=== PATIENT | female | born 1995 | race Caucasian/White ===

== ENCOUNTER 2017-11-04 18:30 | Emergency (ER) | payer OTHER ==
--- NOTE | 2017-11-04 18:37 | PDOC ---
Rapid Medical Evaluation Medical Evaluation: Allergies Allergy/AdvReac Type Severity Reaction Status Date / Time No Known Allergies Allergy Verified 11/25/15 23:58 11/04/17 18:34 c/o left arm feeling pain, not today, pt also had left side "body pain last week " pt states she felt nausea nd light headed as well yesterday not today. no PMHX, no allergies or medications LMP 3 weeks ago
[2017-11-04 18:42] VITALS: BP 153/83; TEMP 99.1; BMI 28.3
[2017-11-04] MEDS ORDERED: ACETAMINOPHEN 1000 MG/100 ML VIAL (NON FORMULARY) IVPB ONE (20:03)
[2017-11-04] MEDS ORDERED: SODIUM CHLORIDE 0.9% 1000 ML INFUS.BAG IV ONE (20:03)
[2017-11-04] MEDS ORDERED: ACETAMINOPHEN INJECTION 100 ML IVPB ONE (20:23)
[2017-11-04 20:51] LABS: ALBUMIN 4.1 g/dl (3.4-5.0); ANION GAP 9 (8-16); BLOOD UREA NITROGEN 13 mg/dL (7-18); CALCIUM 8.1 mg/dL (8.5-10.1); CHLORIDE 106 mmol/L (98-107); CO2 24 mmol/L (21-32); GLUCOSE,RANDOM 81 mg/dL (74-106); POTASSIUM 3.7 mmol/L (3.5-5.1); SGPT/ALT 32 U/L (12-78); SODIUM 139 mmol/L (136-145)
[2017-11-04 20:54] LABS: ALK PHOS 80 U/L (45-117); BILIRUBIN,TOTAL 0.4 mg/dL (0.2-1.0); CREATININE 0.6 mg/dL (0.55-1.02); SGOT/AST 35 U/L (15-37); TOT PROT 7.3 g/dl (6.4-8.2)
--- NOTE | 2017-11-04 21:02 | PDOC ---
History of Present Illness - General History Source: Patient Exam Limitations: No Limitations - History of Present Illness Initial Comments: 11/04/17 21:03 The patient is a 22 year old female with no significant PMH who presents to the emergency department with 1 week of diffuse body aches and lightheadedness and 3 days of diarrhea. The patient reports initially feeling sore in her left arm which has radiated diffusely to her body. She particularly reports some associated midsternal chest aches and backaches. The patient denies any nasal congestion or cough. She denies outside travel or sick contacts. She denies chance of . The patient denies chest pain, shortness of breath, headache and dizziness. Denies fever, chills, nausea, vomit, diarrhea and constipation. Denies dysuria, frequency, urgency and hematuria. Allergies: NKA Past surgical history: None reported. Social history: No reported cigarette, alcohol, or drug use. PCP: Dr. Benavidez <Rcih Garcia - Last Filed: 11/04/17 21:03> <Andres Beckett - Last Filed: 11/04/17 22:05> - General Chief Complaint: Head/Neck problem Stated Complaint: PAIN Time Seen by Provider: 11/04/17 19:58 Past History <Rich Garcia - Last Filed: 11/04/17 21:03> - Past Medical History COPD: No - Suicide/Smoking/Psychosocial Hx Smoking History: Never smoked Have you smoked in the past 12 months: No Information on smoking cessation initiated: No Hx Alcohol Use: No Drug/Substance Use Hx: No Substance Use Type: None <Andres Beckett - Last Filed: 11/04/17 22:05> - Past Medical History Allergies/Adverse Reactions: Allergies Allergy/AdvReac Type Severity Reaction Status Date / Time No Known Allergies Allergy Verified 11/04/17 18:41 Home Medications: Ambulatory Orders NK [No Known Home Medication] 11/25/15 Review of Systems - Review of Systems Able to Perform ROS?: Yes Comments:: 11/04/17 21:03 A complete review of 10 out of 10 review of systems is taken and is negative apart from what is previously mentioned below and in the HPI. <Rich Garcia - Last Filed: 11/04/17 21:03> *Physical Exam - Vital Signs Last Vital Signs Temp Pulse Resp BP Pulse Ox 99.1 F 110 H 18 153/83 100 11/04/17 18:37 11/04/17 18:37 11/04/17 18:37 11/04/17 18:37 11/04/17 18:37 - Physical Exam Comments: 11/04/17 21:03 Vitals: Triage Vital signs reviewed General Appearance: no acute distress, well nourished well developed, Head: Atraumatic, normocephalic Eyes: Pupils equal reactive round, extraocular movement intact Ears: TM's normal bilaterally; Nose: Nares patent bilaterally;no nasal congestion Throat: Posterior oropharynx without erythema, mucous membranes moist, Chest Wall: Nontender Cardiac: Regular rate and rhythm, no murmurs, no rubs, no gallops, Lungs: Clear to auscultation bilateral, good air movement bilaterally, Abdomen: Soft, nondistended, normal bowel sounds, nontender to palpation Extremities: Full range of motion to all extremities, no cyanosis, clubbing, or edema Neuro: AOX3; Cranial Nerves 2-12 grossly intact, Strength intact to all extremities, Sensation intact to all extremities Psych: normal mood, normal affect <Rich Garcia - Last Filed: 11/04/17 21:03> - Vital Signs Last Vital Signs Temp Pulse Resp BP Pulse Ox 99.1 F 110 H 18 153/83 100 11/04/17 18:37 11/04/17 18:37 11/04/17 18:37 11/04/17 18:37 11/04/17 18:37 <Andres Beckett - Last Filed: 11/04/17 22:05> Heart Score/ECG Review - ECG Impressions Comment:: 11/04/17 22:[address] elevations or T-wave inversions <Andres Beckett - Last Filed: 11/04/17 22:05> ED Treatment Course - LABORATORY CBC & Chemistry Diagram: 11/04/17 20:05 - ADDITIONAL ORDERS Additional order review: Laboratory Results 11/04/17 11/04/17 11/04/17 20:05 20:05 20:05 Sodium 139 Potassium 3.7 Chloride 106 Carbon Dioxide 24 Anion Gap 9 BUN 13 Creatinine 0.6 Creat Clearance w eGFR > 60 Random Glucose 81 Calcium 8.1 L Total Bilirubin 0.4 AST 35 ALT 32 Alkaline Phosphatase 80 Troponin I Cancelled < 0.02 Total Protein 7.3 Albumin 4.1 Urine HCG, Qual Negative - Medications Given in the ED: ED Medications Discontinued Medications Generic Name Dose Route Start Last Admin Trade Name Freq PRN Reason Stop Dose Admin Acetaminophen 1,000 mg 11/04/17 20:03 11/04/17 20:28 Ofirmev Injection - IVPB 11/04/17 20:04 1,000 mg ONCE ONE Administration Sodium Chloride 1,000 ml 11/04/17 20:03 11/04/17 20:22 Normal Saline - IV 11/04/17 20:04 1,000 ml ONCE ONE Administration <Rich Garcia - Last Filed: 11/04/17 21:03> - LABORATORY CBC & Chemistry Diagram: 11/04/17 20:05 - ADDITIONAL ORDERS Additional order review: Laboratory Results 11/04/17 11/04/17 11/04/17 20:05 20:05 20:05 Sodium 139 Potassium 3.7 Chloride 106 Carbon Dioxide 24 Anion Gap 9 BUN 13 Creatinine 0.6 Creat Clearance w eGFR > 60 Random Glucose 81 Calcium 8.1 L Total Bilirubin 0.4 AST 35 ALT 32 Alkaline Phosphatase 80 Troponin I Cancelled < 0.02 Total Protein 7.3 Albumin 4.1 Urine HCG, Qual Negative - Medications Given in the ED: ED Medications Discontinued Medications Generic Name Dose Route Start Last Admin Trade Name Freq PRN Reason Stop Dose Admin Acetaminophen 1,000 mg 11/04/17 20:03 11/04/17 20:28 Ofirmev Injection - IVPB 11/04/17 20:04 1,000 mg ONCE ONE Administration Sodium Chloride 1,000 ml 11/04/17 20:03 11/04/17 20:22 Normal Saline - IV 11/04/17 20:04 1,000 ml ONCE ONE Administration <Andres Beckett - Last Filed: 11/04/17 22:05> Medical Decision Making - Medical Decision Making 11/04/17 21:03 Plan: Lab: BMP, CMP, Urine hCG, Troponin I Cardiology: EKG Medications: Ofirmev, Normal saline. <Rich Garcia - Last Filed: 11/04/17 21:03> - Medical Decision Making Well-appearing no apparent distress history and examination consistent with viral illness given body aches and diarrhea No headache no neck discomfort no rash Labs EKG within normal limits Findings, the need for follow-up, strict return instructions discussed with patient. <Andres Beckett - Last Filed: 11/04/17 22:05> *DC/Admit/Observation/Transfer - Attestations Scribe Attestion: 11/04/17 21:04 Documentation prepared by Rich Garcia, acting as durable medical equipment repairer for Andres Beckett MD. <Rich Garcia - Last Filed: 11/04/17 21:03> <Andres Beckett - Last Filed: 11/04/17 22:05> Diagnosis at time of Disposition: Viral illness - Referrals Referrals: Lexy Menendez MD [Primary Care Provider] - - Patient Instructions Printed Discharge Instructions: Diarrhea Additional Instructions: Drink plenty fluids. Take [id number] Tylenol and a probiotic as directed on package. Follow-up with your doctor in 2-3 days. Return to the emergency department for any severe worsening symptoms or for any concerns. - Post Discharge Activity Forms/Work/School Notes: Back to Work
[2017-11-04 22:09] VITALS: PULSE 78
--- NOTE | 2017-11-05 11:29 | EKG ---
Test Reason : Blood Pressure : / mmHG Vent. Rate : 096 BPM Atrial Rate : 096 BPM P-R Int : 136 ms QRS Dur : 084 ms QT Int : 330 ms P-R-T Axes : 046 037 009 degrees QTc Int : 416 ms NORMAL SINUS RHYTHM NORMAL ECG NO PREVIOUS ECGS AVAILABLE Confirmed by MD Madison Daniel ([id number]) on 11/05/2017 11:29:18 AM Referred By: Confirmed By:Hero Madison MD
== END 2017-11-04 22:13 | disposition home or self-care (01) ==
LOC: JER 18:30
PROC: 3E033NZ Introduction of Analgesics, Hypnotics, Sedatives into Peripheral Vein, Percutaneous Approach (ICD-10-PCS; principal; 2017-11-04)
DX: B34.9 Viral infection, unspecified (principal)
CPT/HCPCS: 36415; 80053; 84484; 84703; 93005; 93010; 96374; 99282-25

== ENCOUNTER 2018-01-15 14:59 | Emergency (ER) | payer OTHER ==
[2018-01-15 15:47] VITALS: BP 128/70; PULSE 74; TEMP 98.7; BMI 28.3
--- NOTE | 2018-01-15 15:47 | PDOC ---
Rapid Medical Evaluation Time Seen by Provider: 01/15/18 15:42 Medical Evaluation: Allergies Allergy/AdvReac Type Severity Reaction Status Date / Time No Known Allergies Allergy Verified 01/15/18 15:42 01/15/18 15:43 I have performed a brief in-person evaluation of this patient. The patient presents with a chief complaint of: rash to toes, worsening x 2 weeks, w/ ?gen weakness. Denies pmhx Pertinent physical exam findings:? tinea to toe webs w/ blisters, erythema and foul odor I have ordered the following:labs The patient will proceed to the ED for further evaluation. Discharge Disposition - Diagnosis Rash - Referrals - Patient Instructions - Post Discharge Activity
[2018-01-15 16:10] LABS: BASO % 0.3 % (0-2.0); EOS % 2.7 % (0-4.5); HEMATOCRIT 31.2 % (32.4-45.2); HEMOGLOBIN 9.9 GM/dL (10.7-15.3); LYMPH % 20.6 % (8-40); MCH 22.8 pg (25.7-33.7); MCHC 31.9 g/dl (32.0-36.0); MEAN CELL VOLUME 71.5 fl (80-96); MEAN PLT VOLUME 8.3 fl (7.5-11.1); MONO % 6.7 % (3.8-10.2); NEUT % 69.7 % (42.8-82.8); PLATELET COUNT 258 K/MM3 (134-434); RBC 4.36 M/mm3 (3.60-5.2); RDW 17.6 % (11.6-15.6); WHITE BLOOD COUNT 9.1 K/mm3 (4.0-10.0)
--- NOTE | 2018-01-15 16:56 | PDOC ---
History of Present Illness - General Chief Complaint: Wound Stated Complaint: FEET WOUNDS Time Seen by Provider: 01/15/18 15:42 - History of Present Illness Initial Comments: 01/15/18 16:51 Ms. Raphael is a 22 yo female w/ no significant pmh who presents complaining of a several day history of blisters and pain / parasthesias to her feet. She reports that last week she started playing soccer with new cleats and developed blistering. She continued to play and the blisters got larger and more painful. Several burst and she has started to have tingling as well. She presents for evaluation as they have continued to get worse. The patient denies chest pain, shortness of breath, headache and dizziness. Denies fever, chills, nausea, vomit, diarrhea and constipation. Denies dysuria, frequency, urgency and hematuria. Allergies: NKDA Past History - Past Medical History Allergies/Adverse Reactions: Allergies Allergy/AdvReac Type Severity Reaction Status Date / Time No Known Allergies Allergy Verified 01/15/18 15:42 Home Medications: Ambulatory Orders Clotrimazole 1 applic TP BID #1 bottle 01/15/18 COPD: No - Suicide/Smoking/Psychosocial Hx Smoking History: Never smoked Have you smoked in the past 12 months: No Hx Alcohol Use: No Drug/Substance Use Hx: No Substance Use Type: None Review of Systems - Review of Systems Comments:: 01/15/18 16:54 GENERAL/CONSTITUTIONAL: No fever or chills. No weakness. HEAD, EYES, EARS, NOSE AND THROAT: No change in vision. No ear pain or discharge. No sore throat. CARDIOVASCULAR: No chest pain or shortness of breath RESPIRATORY: No cough, wheezing, or hemoptysis. GASTROINTESTINAL: No nausea, vomiting, diarrhea or constipation. GENITOURINARY: No dysuria, frequency, or change in urination. MUSCULOSKELETAL: +Blisters/pain to several toes. No joint or muscle swelling or pain. No neck or back pain. SKIN: No rash NEUROLOGIC: No headache, vertigo, loss of consciousness, or change in strength/ sensation. ENDOCRINE: No increased thirst. No abnormal weight change HEMATOLOGIC/LYMPHATIC: No anemia, easy bleeding, or history of blood clots. ALLERGIC/IMMUNOLOGIC: No hives or skin allergy. *Physical Exam - Vital Signs Last Vital Signs Temp Pulse Resp BP Pulse Ox 98.7 F 74 19 128/70 100 01/15/18 15:43 01/15/18 15:43 01/15/18 15:43 01/15/18 15:43 01/15/18 15:43 - Physical Exam Comments: 01/15/18 16:55 GENERAL: Awake, alert, and fully oriented, in no acute distress HEAD: No signs of trauma, normocephalic, atraumatic EYES: PERRLA, EOMI, sclera anicteric, conjunctiva clear ENT: Auricles normal inspection, hearing grossly normal, nares patent, oropharynx clear without exudates. Moist mucosa NECK: Normal ROM, supple, no lymphadenopathy, JVD, or masses LUNGS: No distress, speaks full sentences, clear to auscultation bilaterally HEART: Regular rate and rhythm, normal S1 and S2, no murmurs, rubs or gallops, peripheral pulses normal and equal bilaterally. ABDOMEN: Soft, nontender, normoactive bowel sounds. No guarding, no rebound. No masses EXTREMITIES: +Bilateral dessication of skin of toes with significant blistering. Skin appears wet. NEUROLOGICAL: Cranial nerves II through XII grossly intact. Normal speech, normal gait, no focal sensorimotor deficits SKIN: As above, otherwise Warm, Dry, normal turgor, no rashes or lesions noted. ED Treatment Course - LABORATORY CBC & Chemistry Diagram: 01/15/18 16:03 01/15/18 16:03 - ADDITIONAL ORDERS Additional order review: 01/15/18 16:03 RBC 4.36 MCV 71.5 L MCHC 31.9 L RDW 17.6 H MPV 8.3 Neutrophils % 69.7 Lymphocytes % 20.6 Monocytes % 6.7 Eosinophils % 2.7 Basophils % 0.3 Medical Decision Making - Medical Decision Making 01/15/18 18:21 Ms. Raphael is a 22 yo female w/ no pmh who presents for evaluation of symptoms consistent with tinea pedis /athlete's foot. Patient labs grossly wnl. Patient educated on preventive measures with clotrimazole proscribed. Patient referred to dermatology for further follow-up. Discharging to home. *DC/Admit/Observation/Transfer Diagnosis at time of Disposition: Tinea pedis Qualifiers: Laterality: unspecified laterality Qualified Code(s): B35.3 - Tinea pedis - Discharge Dispostion Disposition: HOME Condition at time of disposition: Stable - Prescriptions Prescriptions: Clotrimazole 1 applic TP BID #1 bottle - Referrals Referrals: Gracie Warner MD [Staff Physician] - Lexy Menendez MD [Primary Care Provider] - - Patient Instructions Printed Discharge Instructions: DI for Athlete's Foot Additional Instructions: Call Dr. Warner's office for a follow up appointment with dermatology within 1 week. Follow up with your primary doctor within 1 week. Apply the cream to your feet twice a day. Keep your feet dry and clean. Return to the emergency department if you have any new, worsening, or concerning symptoms. - Post Discharge Activity
[2018-01-15 17:23] LABS: CHLORIDE 106 mmol/L (98-107); POTASSIUM 3.7 mmol/L (3.5-5.1); SODIUM 140 mmol/L (136-145)
[2018-01-15 17:34] LABS: ALBUMIN 3.9 g/dl (3.4-5.0); ALK PHOS 82 U/L (45-117); ANION GAP 7 (8-16); BILIRUBIN,TOTAL 0.3 mg/dL (0.2-1.0); BLOOD UREA NITROGEN 7 mg/dL (7-18); CALCIUM 8.5 mg/dL (8.5-10.1); CO2 27 mmol/L (21-32); CREATININE 0.5 mg/dL (0.55-1.02); GLUCOSE,RANDOM 90 mg/dL (74-106); SGOT/AST 17 U/L (15-37); SGPT/ALT 22 U/L (12-78); TOT PROT 7.2 g/dl (6.4-8.2)
--- NOTE | 2018-01-15 18:18 | PDOC ---
Attending Attestation - Resident Resident Name: Tom Huynh - ED Attending Attestation I have performed the following: I have examined & evaluated the patient, The case was reviewed & discussed with the resident, I agree w/resident's findings & plan, Exceptions are as noted - HPI HPI: 01/15/18 18:37 The patient is a 22 year old female with no significant past medical history who presents to the ED complaining of bilateral foot pain and blistering. She states she recently started playing soccer. She was playing with new cleats and developed blisters. Since then her blisters have worsened. She now notes a bad odor from her feet b/l. Denies f/c. Denies any other sxs. - Physicial Exam PE: 01/15/18 18:42 GENERAL: Awake, alert, and fully oriented, in no acute distress HEAD: No signs of trauma EYES: PERRLA, EOMI, sclera anicteric, conjunctiva clear ENT: Auricles normal inspection, hearing grossly normal, nares patent, oropharynx clear without exudates. Moist mucosa NECK: Normal ROM, supple, no lymphadenopathy, JVD, or masses LUNGS: Breath sounds equal, clear to auscultation bilaterally. No wheezes, and no crackles HEART: Regular rate and rhythm, normal S1 and S2, no murmurs, rubs or gallops ABDOMEN: Soft, nontender, normoactive bowel sounds. No guarding, no rebound. No masses EXTREMITIES: Normal range of motion, no edema. No clubbing or cyanosis. No cords, erythema, or tenderness NEUROLOGICAL: Normal speech, cranial nerves intact, 5/5 strength in all 4 extremities, SKIN: B/l toes malodorous with macerated skin, worse in intertriginous areas btwn toes, some scaling limited to toes. No erythema, induration, purulent discharge. - Medical Decision Making 01/15/18 18:13 22-year-old female with no significant past medical history presents emergency Department with bilateral rash to her feet consistent with tinea pedis, no evidence of superinfection at this time. Vitals within normal limits. Blood work with likely iron deficiency anemia, pt states at times her periods are heavy. Pt denies any SOB, dizziness, CP, weakness, thus asymptomatic anemia. Advised pt to f/u with PMD for rpt blood work. With regards to tinea pedis, will treat with clotrimazole twice a day and refer to dermatology. I discussed the physical exam findings, ancillary test results and final diagnoses with the patient. I answered all of the patient's questions. The patient was satisfied with the care received and felt comfortable with the discharge plan and treatment plan. The patient will call their primary care physician within 24 hours to arrange follow-up and will return to the Emergency Department with any new, persistent or worsening symptoms. Discharge Disposition - Diagnosis Tinea pedis Qualifiers: Laterality: unspecified laterality Qualified Code(s): B35.3 - Tinea pedis - Discharge Dispostion Disposition: HOME Condition at time of disposition: Stable Last Admission D/C Date: 95 Decision to Admit order: No - Prescriptions Prescriptions: Clotrimazole 1 applic TP BID #1 bottle - Referrals Referrals: Leyx Menendez MD [Primary Care Provider] - Gracie Warner MD [Staff Physician] - - Patient Instructions Printed Discharge Instructions: DI for Athlete's Foot Additional Instructions: Call Dr. Warner's office for a follow up appointment with dermatology within 1 week. Follow up with your primary doctor within 1 week. Apply the cream to your feet twice a day. Keep your feet dry and clean. Return to the emergency department if you have any new, worsening, or concerning symptoms. - Post Discharge Activity
== END 2018-01-15 19:25 | disposition home or self-care (01) ==
LOC: JER 14:59
DX: B35.3 Tinea pedis (principal)
CPT/HCPCS: 36415; 80053; 84703; 85025; 99282-25

== ENCOUNTER 2019-11-06 13:59 | Emergency (ER) | payer OTHER ==
[2019-11-06 14:13] VITALS: TEMP 97.9; BMI 26.2
--- NOTE | 2019-11-06 14:42 | PDOC ---
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 Patient reports she was at her friend's house eating soup when she felt dizzy and sat down, passing out for about 60 seconds. Per friend at bedside, she caught the patient and helped her sit into a chair, and patient was unconscious with some arm tremors with eyes rolled back, no trauma. Patient woke up for 5 seconds, then passed out again for about 30 seconds. Per friend, woke up pale and sweaty but was back at baseline LOC. Patient walked to bathroom, still felt dizzy, took Uber to ED. Patient denies any prodromal symptoms, no chest pain, palpitations, SOB, vision changes. Remembers waking up after first event and had bright rings in her vision. Currently feels a little weak but otherwise feels well. Denies any prior episodes. Has had URI sx including fever for the last 3 days, no sick contacts, mild cough, no N/V, has loose stools today, only took Robotussin for sx. Denies any long distance travel, clotting disease, hormone use. Denies history of seizures. Sleeping and eating well. Denies tobacco/ alcohol/drug use. Denies . NKDA No meds. Past History - Past Medical History Allergies/Adverse Reactions: Allergies Allergy/AdvReac Type Severity Reaction Status Date / Time No Known Allergies Allergy Verified 11/06/19 14:06 Home Medications: Ambulatory Orders NK [No Known Home Medication] 11/06/19 COPD: No - Psycho Social/Smoking Cessation Hx Smoking History: Never smoked Have you smoked in the past 12 months: No Hx Alcohol Use: No Drug/Substance Use Hx: No Substance Use Type: None Review of Systems - Review of Systems Able to Perform ROS?: Yes Constitutional: Yes: Fever. No: Chills HEENTM: No: Eye Pain, Blurred Vision, Nose Pain, Throat Pain, Mouth Swelling Respiratory: Yes: Cough. No: Shortness of Breath, Productive cough Cardiac (ROS): Yes: Syncope. No: Chest Pain, Edema, Irregular Heart Rate, Lightheadedness, Palpitations ABD/GI: No: Constipated, Diarrhea, Nausea, Poor Appetite, Poor Fluid Intake, Vomiting : No: Burning, Dysuria, Discharge, Frequency, Flank Pain, Hematuria, Incontinence Musculoskeletal: No: Symptoms Reported Integumentary: No: Symptoms Reported Neurological: No: Headache, Paresthesia, Seizure, Unsteady Gait Endocrine: No: Symptoms Reported Hematologic/Lymphatic: No: Symptoms Reported All Other Systems: Reviewed and Negative *Physical Exam - Vital Signs Last Vital Signs Temp Pulse Resp BP Pulse Ox 97.9 F 104 H 16 93/65 99 11/06/19 14:12 11/06/19 14:12 11/06/19 14:12 11/06/19 14:12 11/06/19 14:12 - Physical Exam General Appearance: Yes: Nourished, Appropriately Dressed. No: Apparent Distress HEENT: positive: EOMI, ANGELA, Normal ENT Inspection, Normal Voice, Symmetrical, Pharynx Normal, Hearing Grossly Normal. negative: Scleral Icterus (R), Scleral Icterus (L), Pharyngeal Erythema, Tonsillar Exudate, Tonsillar Erythema Neck: positive: Trachea midline, Normal Thyroid, Supple. negative: Tender, Rigid, Lymphadenopathy (R), Lymphadenopathy (L), Tender lateral, Tender midline Respiratory/Chest: positive: Lungs Clear, Normal Breath Sounds. negative: Chest Tender, Respiratory Distress, Accessory Muscle Use, Labored Respiration, Crackles, Rales, Rhonchi, Stridor, Wheezing Cardiovascular: positive: Regular Rhythm, Tachycardia. negative: Murmur Gastrointestinal/Abdominal: positive: Normal Bowel Sounds, Flat, Soft. negative : Tender, Organomegaly, Pulsatile Mass, Guarding, Rebound Musculoskeletal: positive: Normal Inspection. negative: CVA Tenderness, Vertebral Tenderness Extremity: positive: Normal Capillary Refill, Normal Inspection, Normal Range of Motion, Pelvis Stable. negative: Tender, Pedal Edema, Swelling Integumentary: positive: Normal Color, Dry, Warm. negative: Cold, Clammy, Diaphoresis Neurologic: positive: client technologies specialist II-XII NML intact, Fully Oriented, Alert, Normal Mood/ Affect, Normal Response, Motor Strength 5/5, Finger to Nose (normal). negative : Facial Droop, Numbness, Sensory Deficit ED Treatment Course - LABORATORY CBC & Chemistry Diagram: 11/06/19 15:12 11/06/19 15:12 Medical Decision Making - Medical Decision Making 11/06/19 15:37 Patient presents with 2x syncope today with mild tremors, no notable prodromal or postictal symptoms, no head trauma, no chest pain/SOB, in the setting of febrile illness for 3 days. Concerned for seizure or arrhythmia but less likely given history and lack of inciting factors. More likely to be vasovagal given patient was pale and diaphoretic per witness at bedside. Evaluating for infectious/electrolyte etiology and repleting fluids. - CMP/CBC for eval lytes/infection - ECG for eval arrthymia - Serum - 1L NS for rehydration - CT head for eval intracranial mass 11/06/19 16:50 Labs notable for: - CBC WNL - upreg negative - CMP WNL Adding on trop/CPK for eval cardiac etiology. 11/06/19 17:35 Trop/CPK negative CTH no abnormalities ECG NSR with HR 87, QRS 80, QTc 430, no TWI or ischemic changes Most likely vasovagal syncope as opposed to sz. Repeat VS show improved BP and decreased HR. Stable for discharge home PMD/neuro/cards flu. Discharge - Discharge Information Problems reviewed: Yes Clinical Impression/Diagnosis: Syncope Qualifiers: Syncope type: unspecified Qualified Code(s): R55 - Syncope and collapse Condition: Stable Disposition: HOME - Follow up/Referral Referrals: Cecilio Ngo MD [Staff Physician] - Saroj Delgado MD [Staff Physician] - - Patient Discharge Instructions Patient Printed Discharge Instructions: DI for Syncope in Adults (Fainting) Additional Instructions: Today you were evaluated for fainting. Your blood labs show no problems. Your ECG shows no heart disease. Your CT scan shows no problems. We gave you some IV fluids and you felt better. At home, remember to stay hydrated and get enough sleep. Please see your primary doctor in the next week for further care. IYou need to see a neurologist, and a solar energy consultant and designer, and referrals have been given. If you experience dizziness again, please lie down flat on the ground. Also, do not operate any equipment such as motor vehicles before seeing a neurologist. If you experience dizziness, vision changes, numbness, tingling, chest pain, worse fever, or any other new or concerning symptoms, please return to the emergency room. - Post Discharge Activity
[2019-11-06] MEDS ORDERED: SODIUM CHLORIDE 0.9% 500 ML INFUS.BAG IV ONE ×2 (15:33→18:14)
--- NOTE | 2019-11-06 16:02 | PDOC ---
Attending Attestation - Resident Resident Name: Karen Gonzales - ED Attending Attestation I have performed the following: I have examined & evaluated the patient, The case was reviewed & discussed with the resident, I agree w/resident's findings & plan, Exceptions are as noted - HPI HPI: 11/06/19 16:01 24 years old no significant past medical history presents to the emergency department syncope versus seizure. 2 -EKG 30 to 60 seconds episodes of eyes rolling back and shaking while seated in a chair afterwards no postictal. There was no tongue biting no incontinence no history of similar prior to the episode patient felt dizzy and lightheaded she has had a recent URI and slightly decreased p.o. intake recently - Physicial Exam PE: 11/06/19 16:02 Vitals: Triage Vital signs reviewed General Appearance: No acute distress, well nourished well developed, Head: Atraumatic, Eyes: Pupils equal reactive round, extraocular movement intact Cardiac: Regular rate and rhythym, no murmurs, no rubs, no gallops, Lungs: Clear to auscultation bilateral, good air movement bilaterally, Abdomen: Soft, non distended, normal bowel sounds, non tender to palpation Extremities: Full range of motion to all extremities, no cyanosis, clubbing, or edema Skin: Warm and dry, no rashes or lesions, no rash, no petechiae Neuro: AOX3; cranial Nerves 2-12 grossly intact, strength intact to all extremities, sensation intact to all extremities, gait normal Psych: Normal mood, normal affect - Medical Decision Making 11/06/19 16:02 Well-appearing no apparent distress with syncope versus seizure most likely syncope given no tongue biting no postictal no incontinence We will check head CT labs EKG test hydrate observe and reassess Dr. Moore to followup results and reasses
[2019-11-06 16:40] LABS: BASO % 0.3 % (0-2.0); HEMATOCRIT 29.5 % (32.4-45.2); HEMOGLOBIN 9.1 GM/dL (10.7-15.3); LYMPH % 9.6 % (8-40); MCH 20.7 pg (25.7-33.7); MCHC 30.9 g/dl (32.0-36.0); MEAN CELL VOLUME 67.1 fl (80-96); MEAN PLT VOLUME 9.5 fl (7.5-11.1); MONO % 6.9 % (3.8-10.2); NEUT % 83.2 % (42.8-82.8); PLATELET COUNT 230 K/MM3 (134-434); RDW 17.5 % (11.6-15.6); WHITE BLOOD COUNT 9.4 K/mm3 (4.0-10.0)
[2019-11-06 17:08] LABS: ALBUMIN 4.2 g/dl (3.4-5.0); ALK PHOS 64 U/L (45-117); ANION GAP 8 MMOL/L (8-16); BILIRUBIN,TOTAL 0.9 mg/dL (0.2-1); BLOOD UREA NITROGEN 10.6 mg/dL (7-18); CALCIUM 8.4 mg/dL (8.5-10.1); CHLORIDE 102 mmol/L (98-107); CO2 26 mmol/L (21-32); CREATININE 0.6 mg/dL (0.55-1.3); GLUCOSE,RANDOM 84 mg/dL (74-106); POTASSIUM 3.5 mmol/L (3.5-5.1); SGOT/AST 14 U/L (15-37); SGPT/ALT 16 U/L (13-61); SODIUM 136 mmol/L (136-145); TOT PROT 7.8 g/dl (6.4-8.2)
[2019-11-06 17:12] LABS: ANISOCYTOSIS 1+; OVALOCYTE 2+; PLATELET ESTIMATE ADEQUATE
[2019-11-06 19:23] VITALS: BP 120/65; PULSE 68
--- NOTE | 2019-11-07 01:28 | PDOC ---
Documentation entered by Kizzy Garrison SCRIBE, acting as scribe for Morgan Moore DO. Morgan Moore DO: This documentation has been prepared by the Meli brown Adrianna, SCRIBE, under my direction and personally reviewed by me in its entirety. I confirm that the documentation accurately reflects all work, treatment, procedures, and medical decision making performed by me. *Physical Exam - Vital Signs Last Vital Signs Temp Pulse Resp BP Pulse Ox 97.9 F 104 H 16 93/65 99 11/06/19 14:12 11/06/19 14:12 11/06/19 14:12 11/06/19 14:12 11/06/19 14:12 - Physical Exam GENERAL: Well developed, well nourished. Awake and alert. No acute distress. Looks well. HEENT: Normocephalic, atraumatic. PERRLA, EOMI. No conjunctival pallor. Sclera are non-icteric. Moist mucous membranes. Oropharynx is clear. NECK: Supple. Full ROM. No JVD. Carotid pulses 2+ and symmetric, without bruits. No thyromegaly. No lymphadenopathy. CARDIOVASCULAR: Regular rate and rhythm. No murmurs, rubs, or gallops. Distal pulses are 2+ and symmetric. PULMONARY: No evidence of respiratory distress. Lungs clear to auscultation bilaterally. No wheezing, rales or rhonchi. ABDOMINAL: Soft. Non-tender. Non-distended. No rebound or guarding. No organomegaly. Normoactive bowel sounds. MUSCULOSKELETAL: Normal range of motion at all joints. No bony deformities or tenderness. No CVA tenderness. EXTREMITIES: No cyanosis. No clubbing. No edema. No calf tenderness. SKIN: Warm and dry. Normal capillary refill. No rashes. No jaundice. NEUROLOGICAL: Alert, awake, appropriate. Cranial nerves 2-12 intact. No deficits to light touch and temperature in face, upper extremities and lower extremities. No motor deficits in the in face, upper extremities and lower extremities. Normoreflexic in the upper and lower extremities. Normal speech. Toes are down-going bilaterally. Gait is normal without ataxia. PSYCHIATRIC: Cooperative. Good eye contact. Appropriate mood and affect. ED Treatment Course - LABORATORY CBC & Chemistry Diagram: 11/06/19 15:12 11/06/19 15:12 - ADDITIONAL ORDERS Additional order review: Laboratory Results 11/06/19 11/06/19 15:12 15:12 Sodium 136 Potassium 3.5 Chloride 102 Carbon Dioxide 26 Anion Gap 8 BUN 10.6 Creatinine 0.6 Est GFR (CKD-EPI)AfAm 147.86 Est GFR (CKD-EPI)NonAf 127.58 Random Glucose 84 Calcium 8.4 L Total Bilirubin 0.9 AST 14 L ALT 16 Alkaline Phosphatase 64 Total Protein 7.8 Albumin 4.2 Serum , Qual Negative 11/06/19 15:12 RBC 4.40 MCV 67.1 L MCHC 30.9 L RDW 17.5 H MPV 9.5 D Neutrophils % 83.2 H Lymphocytes % 9.6 D Monocytes % 6.9 Eosinophils % 0.0 D Basophils % 0.3 - Medications Given in the ED: ED Medications Discontinued Medications Generic Name Dose Route Start Last Admin Trade Name Freq PRN Reason Stop Dose Admin Sodium Chloride 1,000 ml 11/06/19 15:33 11/06/19 16:51 Normal Saline - IV 11/06/19 15:34 1,000 ml ONCE ONE Administration ED Progress Note - Progress Note Progress Note: The patient is a 24 year old female, signed out to me by Dr. Beckett for follow up of CT head and labs. She syncopized today, and her friend said it looked like a seizure. Dr. Beckett notes it was a vaso-vagal episode. Medical Decision Making - Medical Decision Making Assessment and Plan: This is a 24 year old female here for vaso vagal versus syncopal episode. Reviewed ECG: Normal sinus rhythm at 87. Normal axis and interval. No Brugada. No acute ischemia. Performed at 17:16. Will plan to reassess after labs and CT head are resulted. Right now her blood pressure is borderline low. Will administer IV fluids and reassess blood pressure. Reassessment: CT head negative, CPK negative. Repeat vital signs, as her blood pressure was soft. Patient got a liter of fluids, and is feeling well. Patient was given return precautions, with urology and cardiology follow up. She is stable for discharge. Discharge - Discharge Information Clinical Impression/Diagnosis: Syncope Qualifiers: Syncope type: unspecified Qualified Code(s): R55 - Syncope and collapse Condition: Stable Disposition: HOME - Follow up/Referral Referrals: Cecilio Ngo MD [Staff Physician] - Saroj Delgado MD [Staff Physician] - - Patient Discharge Instructions Patient Printed Discharge Instructions: DI for Syncope in Adults (Fainting) Additional Instructions: Today you were evaluated for fainting. Your blood labs show no problems. Your ECG shows no heart disease. Your CT scan shows no problems. We gave you some IV fluids and you felt better. At home, remember to stay hydrated and get enough sleep. Please see your primary doctor in the next week for further care. IYou need to see a neurologist, and a concrete polisher, and referrals have been given. If you experience dizziness again, please lie down flat on the ground. Also, do not operate any equipment such as motor vehicles before seeing a neurologist. If you experience dizziness, vision changes, numbness, tingling, chest pain, worse fever, or any other new or concerning symptoms, please return to the emergency room. - Post Discharge Activity
--- NOTE | 2019-11-07 13:31 | EKG ---
Test Reason : Blood Pressure : / mmHG Vent. Rate : 087 BPM Atrial Rate : 087 BPM P-R Int : 124 ms QRS Dur : 080 ms QT Int : 358 ms P-R-T Axes : 045 033 009 degrees QTc Int : 430 ms NORMAL SINUS RHYTHM NORMAL ECG WHEN COMPARED WITH ECG OF 04-NOV-2017 18:42, NO SIGNIFICANT CHANGE WAS FOUND Confirmed by JENNY FARNSWORTH MD ([id number]) on 11/07/2019 1:31:11 PM Referred By: Confirmed By:JENNY FARNSWORTH MD
== END 2019-11-06 19:23 | disposition home or self-care (01) ==
LOC: JER 13:59
PROC: 3E0337Z Introduction of Electrolytic and Water Balance Substance into Peripheral Vein, Percutaneous Approach (ICD-10-PCS; principal; 2019-11-06)
DX: R55 Syncope and collapse (principal)
CPT/HCPCS: 36415; 70450-TC; 80053; 82550; 84484; 84703; 85025; 93005; 93010; 99285-25

== ENCOUNTER 2023-01-12 22:30 | Emergency (ER) | payer OTHER ==
[2023-01-12 22:40] VITALS: BP 116/78; PULSE 72; RESP 19; TEMP 98.8; BMI 27.4
[2023-01-12] MEDS ORDERED: METHOCARBAMOL 500 MG TABLET PO ONE (23:28)
[2023-01-12] MEDS ORDERED: KETOROLAC TROMETHAMINE 30 MG/1 ML VIAL IM ONE (23:28)
[2023-01-12] MEDS ORDERED: METHOCARBAMOL 500 MG TABLET ONE (23:38)
[2023-01-12] MEDS ORDERED: KETOROLAC TROMETHAMINE 15 MG/ML VIAL ONE (23:38)
[2023-01-12] MEDS ORDERED: LIDOCAINE 5% TOPICAL PATCH ONE (23:39)
[2023-01-12] MEDS: LIDOCAINE 5% TOPICAL PATCH TP ONE ×2 (23:44→23:45)
[2023-01-13] MEDS ORDERED: LIDOCAINE PATCH REMOVAL MC ONE (12:00)
== END 2023-01-13 01:27 | disposition home or self-care (01) ==
LOC: JER 22:30
PROC: 3E0233Z Introduction of Anti-inflammatory into Muscle, Percutaneous Approach (ICD-10-PCS; principal; 2023-01-12)
DX: M54.50 Low back pain, unspecified (principal); W51.XXXA Accidental striking against or bumped into by another person, initial encounter
CPT/HCPCS: 96372; 99284-25

== ENCOUNTER 2023-01-23 10:31 | Day surgery (SDC) | payer OTHER ==
[~2023-01-23 10:31] MED LIST: FERRIC CARBOXYMALTOSE 750 MG in SODIUM CHLORIDE 250 ML IVPB ONE
[2023-01-23 16:23] VITALS: PULSE 66; RESP 20; TEMP 98.5
[2023-01-23 16:24] VITALS: BP 115/58
== END 2023-01-23 11:55 | disposition home or self-care (01) ==
LOC: JONCNONCHE 10:31 → J7W 10:33 → JONCNONCHE 11:55
PROVIDERS: ATTEND Internal Medicine Hematology & Oncology
PROC: 3E033GC Introduction of Other Therapeutic Substance into Peripheral Vein, Percutaneous Approach (ICD-10-PCS; principal; 2023-01-23)
DX: D50.9 Iron deficiency anemia, unspecified (principal)
CPT/HCPCS: 96365; J1439

== ENCOUNTER 2023-01-30 10:23 | Day surgery (SDC) | payer OTHER ==
[2023-01-30 16:09] VITALS: BP 131/84; PULSE 74; RESP 18; TEMP 98.3
== END 2023-01-30 11:35 | disposition home or self-care (01) ==
LOC: JONCNONCHE 10:23 → J7W 10:25 → JONCNONCHE 11:35
PROVIDERS: ATTEND Internal Medicine Hematology & Oncology
PROC: 3E033GC Introduction of Other Therapeutic Substance into Peripheral Vein, Percutaneous Approach (ICD-10-PCS; principal; 2023-01-30)
DX: D50.9 Iron deficiency anemia, unspecified (principal)
CPT/HCPCS: 96365; J1439

== ENCOUNTER 2023-03-17 21:54 | Emergency (ER) | payer OTHER ==
[2023-03-17 22:00] VITALS: BP 110/76; PULSE 70; RESP 18; TEMP 98.1; BMI 27.4
[2023-03-17] MEDS ORDERED: LIDOCAINE PATCH REMOVAL MC SCH (22:00)
[2023-03-17] MEDS ORDERED: ACETAMINOPHEN 500 MG TABLET (FP) PO ONE (22:53)
[2023-03-17] MEDS ORDERED: KETOROLAC TROMETHAMINE 30 MG/1 ML VIAL IM ONE (22:54)
[2023-03-17] MEDS ORDERED: LIDOCAINE 5% TOPICAL PATCH TP ONE (22:54)
[2023-03-17] MEDS ORDERED: KETOROLAC TROMETHAMINE 30 MG/1 ML VIAL ONE (23:00)
[2023-03-17] MEDS ORDERED: ACETAMINOPHEN 500 MG TABLET (FP) ONE (23:00)
[2023-03-17] MEDS ORDERED: LIDOCAINE 5% TOPICAL PATCH ONE (23:00)
== END 2023-03-17 23:26 | disposition home or self-care (01) ==
LOC: JERFT 21:54
PROC: 3E0233Z Introduction of Anti-inflammatory into Muscle, Percutaneous Approach (ICD-10-PCS; principal; 2023-03-17)
DX: M54.9 Dorsalgia, unspecified (principal)
CPT/HCPCS: 84703; 96372; 99284-25